=== PATIENT | male | born 1985 | race American Indian/Alaskan Native ===

== ENCOUNTER 2016-12-25 00:19 | Emergency (ER) | payer OTHER ==
[2016-12-25 00:47] VITALS: BP 158/106
[2016-12-25 02:07] LABS: Basophils % (Auto) 0.8 % (0.0-1.8); Eosinophils % (Auto) 2.8 % (0.0-4.3); Hematocrit 46.8 % (35.5-45.6); Hemoglobin 15.5 gm/dl (11.8-15.2); Mean Corpuscular HGB Conc 33 % (32-34); Mean Corpuscular Volume 75 fl (84-94); Platelet Count 294 K/mm3 (140-440); Red Blood Count 6.28 M/mm3 (3.65-5.03); Red Cell Distribution Width 14.8 % (13.2-15.2); White Blood Count 9.3 K/mm3 (4.5-11.0)
[2016-12-25 02:09] LABS: Mean Corpuscular Hemoglobin 25 pg (28-32)
[2016-12-25 02:19] LABS: Anion Gap 20 mmol/L; BUN/Creatinine Ratio 16.42; Blood Urea Nitrogen 23 mg/dL (9-20); Calcium 9.6 mg/dL (8.4-10.2); Carbon Dioxide 24 mmol/L (22-30); Glucose 96 mg/dL (75-100); Potassium 3.6 mmol/L (3.6-5.0); Sodium 136 mmol/L (137-145)
--- NOTE | 2016-12-27 09:00 | ED Elopement Review ---
ED Pt Elopement review - Results review Lab results: Laboratory Tests 12/25/16 12/25/16 01:48 01:48 WBC 9.3 RBC 6.28 H Hgb 15.5 H Hct 46.8 H MCV 75 L MCH 25 L MCHC 33 RDW 14.8 Plt Count 294 Lymph % (Auto) 41.2 H [place] % (Auto) 6.3 Eos % (Auto) 2.8 Baso % (Auto) 0.8 Lymph # 3.8 [place] # 0.6 Eos # 0.3 Baso # 0.1 Seg Neutrophils % 48.9 Seg Neutrophils # 4.5 Sodium 136 L Potassium 3.6 Chloride 96.0 L Carbon Dioxide 24 Anion Gap 20 BUN 23 H Creatinine 1.4 Estimated GFR > 60 BUN/Creatinine Ratio 16.42 Glucose 96 Calcium 9.6 Troponin T < 0.010 Case d/w Cardiology Dr Acuna, pt needs stress test either as in or outpt - Call Back decision Pt Call Back Decision: Call pt to return to ED MIRIAM (ekg changes need further investigation and stress test. IF pain free may follow up with Dr Acuna TEVIN heart [facility]IRIAM, if unable to f/u or continued pain, return to ed for admission.)
== END 2016-12-25 01:49 | disposition left against medical advice (07) ==
LOC: ED 00:19
DX: R07.9 Chest pain, unspecified (principal); Z53.21 Procedure and treatment not carried out due to patient leaving prior to being seen by health care provider
CPT/HCPCS: 36415; 80048; 84484; 85025; 93005; 93010